=== PATIENT | male | born 1985 | race Caucasian/White ===

== ENCOUNTER 2017-08-25 03:26 | Emergency (ER) | payer MEDICAID, SELFPAY ==
[2017-08-25 03:28] VITALS: BP 144/84; PULSE 106; RESP 16; TEMP 36.9; O2SAT 100; BMI 28.8
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
[2017-08-25] MEDS: Naproxen 500 MG Tablet PO (03:47)
--- NOTE | 2017-08-25 04:44 | ED.DCSUM_ITS ---
- ER Visit Summary Date of Service: 08/25/17 Chief Complaint: Sore throat, fever, chills, dental pain History of Present Illness: The patient is a 32 M who reports sinus pressure with green nasal discharge started yesterday. He complains of cough, body aches , and sore throat. He states he had a fever at home but did not measure it. Is also complaining of right upper dental pain. Physical Examination: Vital signs are unremarkable. His temperature here is 98.4. Patient sitting upright in bed in no acute distress. He is nontoxic appearing. Head neck examination reveals TMs to be clear bilaterally. He has moist mucous membranes. Right maxillary first molar is tender to palpation with mild gum edema. Uvula is midline. There is no posterior pharyngeal fullness. He is tolerating secretions well and has a strong voice. Heart is regular rate and rhythm. Lung sounds are grossly clear. Abdomen is soft nontender. Test Results: Two-view chest x-ray is unremarkable. Influenza and rapid strep are negative. Emergency Department Course and Treatment: Patient was given Naprosyn. On repeat evaluation he appears much more comfortable. He will be treated with a course of Augmentin, to cover dental as well as sinuses. Treatment Plan: [] Disposition: Discharge Impression: 1. Odontalgia 2. Viral syndrome This note was generated with Digi[employer]d dictation software. It may contain incorrect words, spelling, and punctuation that were not noted in review of the chart prior to signing ED Disposition - Plan for ED Patient: Disposition: Home or Assisted Living Chief Complaint: General Illness Instructions: ED Tooth Pain, ED Viral Syndrome Prescriptions: Amox/Clavulanate Tablet [Augmentin Tablet] 875 mg PO Q12H #20 tablet Referrals: Parminder Ramirez MD [STAFF PHYSICIAN] - Additional Instructions: Dental list provided
[2017-08-25] MEDS: Amox/Clavulanate 875 MG Tablet PO (05:13)
[2017-08-25 05:15] VITALS: BP 116/75; PULSE 59; RESP 15; O2SAT 98
== END 2017-08-25 05:15 | disposition home or self-care (01) ==
PROVIDERS: Emergency Provider Emergency Medicine
DX: B34.9 Viral infection, unspecified (principal); K08.89 Other specified disorders of teeth and supporting structures; Z72.0 Tobacco use
CPT/HCPCS: 71046; 87804; 87880; 99283

== ENCOUNTER 2017-12-29 01:59 | Emergency (ER) | payer MEDICAID, SELFPAY ==
[2017-12-29] MEDS: fentaNYL 100 MCG/2 ML Ampul IV ×2 (02:00→02:15)
[2017-12-29] MEDS: 0.9% Normal Saline 1,000 ML 999 ML IV (02:00)
[2017-12-29 02:02] VITALS: BP 137/81; PULSE 115; RESP 26; TEMP 35.3; O2SAT 88; BMI 25.8
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
[2017-12-29 02:12] VITALS: O2SAT 99
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
--- NOTE | 2017-12-29 02:18 | ED.RN ---
NO OLD EKG'S IN MUSE
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
[2017-12-29 02:24] LABS: Absolute Lymphocyte Count 3.06 X10^3/ul (0.83-4.51); Absolute Neutrophil Count 4.7 X10^3/uL (2.0-7.7); Basophil# 0.03 X10^3/uL; Basophil% 0.4 % (0-1); Eosinophil# 0.06 X10^3/uL; Eosinophils% 0.7 % (0-5); Hematocrit 37.6 % (40-54); Hemoglobin 12.6 g/dl (13.0-16.5); Lymphocyte # 3.06 X10^3/ul (4.0); Lymphocyte % 35.8 % (19-41); Mean Corp Hgb Conc 33.5 g/gl (32-36); Mean Corpuscular Hgb 29.7 pg (27.0-32.0); Mean Corpuscular Volume 88.7 fL (80-94); Mean Platelet Vol. 9.4 fl (6.2-12.0); Monocyte# 0.64 X10^3/uL; Monocyte% 7.5 % (0-10); Neutrophil # 4.74 X10^3/uL (2.7-7.7); Neutrophil % 55.4 % (47-70); Platelet Count 228 K/mm3 (150-450); RBC Distribution Width CV 13.4 % (11.6-14.6); RBC Distribution Width SD 43.8 fl (35.1-43.9); Red Blood Count 4.24 M/mm3 (4.6-6.2); White Blood Count 8.6 K/mm3 (4.4-11.0)
[2017-12-29 02:25] VITALS: BP 148/79; PULSE 128; RESP 26; O2SAT 99
[2017-12-29 02:27] LABS: POSITIVE COUNT NO; POSITIVE DIFFERENTIAL NO; POSITIVE MORPHOLOGY NO
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
[2017-12-29 02:28] LABS: International Normalized Ratio 1.1; Partial Thromboplast Time 23.5 Seconds (24.1-36.2); Prothrombin Time (Protime)PT. 13.9 SECONDS (11.7-14.9)
[2017-12-29 02:30] VITALS: BP 126/85; PULSE 132; RESP 26; O2SAT 100
[2017-12-29 02:41] LABS: Anion Gap 9 (5-15); BUN 14 mg/dL (7-18); BUN/Creat Ratio 9.9 RATIO (10-20); Calcium,Total 8.4 mg/dL (8.5-10.1); Chloride 109 mmol/L (98-107); Creatinine, Serum 1.42 mg/dL (0.70-1.30); EST Glomerular Filtration Rate 61 mL/min (>60); Est Glom Filt Rate - Afr Amer 74 mL/min (>60); Estimated Creatinine Clearance 82.73 ml/min; Glucose 138 mg/dL (74-106); Potassium 2.9 mmol/L (3.5-5.1); Sodium Level 143 mmol/L (136-145)
--- NOTE | 2017-12-29 02:41 | ED.RN ---
LAB CALLED WITH CRITICAL LAB RESULTS. TROP 2.150. PATIENT BEING TRANSFERRED TO [facility]. [facility] MADE AWARE OF RESULTS.
[2017-12-29 02:45] VITALS: BP 125/76; PULSE 126; RESP 26; O2SAT 99
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
== END 2017-12-29 02:35 | disposition short-term general hospital (02) ==
PROVIDERS: Emergency Provider Emergency Medicine
DX: S21.132A Puncture wound without foreign body of left front wall of thorax without penetration into thoracic cavity, initial encounter (principal); R94.31 Abnormal electrocardiogram [ECG] [EKG]; Z72.0 Tobacco use; W34.00XA Accidental discharge from unspecified firearms or gun, initial encounter; Y93.9 Activity, unspecified; Y92.9 Unspecified place or not applicable; Y99.9 Unspecified external cause status
CPT/HCPCS: 36415; 51702; 71045; 74018; 80048; 84484; 85025; 85610; 85730; 93005; 96361; 96374; 99285; J7030; A4216

== ENCOUNTER 2018-02-10 11:26 | Inpatient (IN) | payer MEDICAID, SELFPAY ==
[2018-02-10] VITALS (13 sets, daily range): BP systolic 120–136; BP diastolic 69–88; PULSE 82–112; RESP 16–29; TEMP 36.4–37.1; O2SAT 98–100; BMI 23.6; BMI 24.0; BMI 24.1
--- NOTE | 2018-02-10 11:37 | EKG12_ITS ---
Test Reason : CP Blood Pressure : / mmHG Vent. Rate : 108 BPM Atrial Rate : 108 BPM P-R Int : 112 ms QRS Dur : 076 ms QT Int : 320 ms P-R-T Axes : 057 054 -09 degrees QTc Int : 428 ms Sinus tachycardia Nonspecific ST and T wave abnormality Abnormal ECG Confirmed by MILLIE PRIETO, RUBENS ([id number]), supervising editor news reel LUIS ANGEL WASHINGTON ([id number]) on 02/12/2018 12:49:26 PM Referred By: SON Confirmed By:RUBENS PINTO MD
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
[2018-02-10] MEDS: 0.9% Normal Saline 1,000 ML 150 ML IV (11:52)
[2018-02-10] MEDS: Morphine 4 MG/ML Syringe IV ×2 (11:52→15:17)
[2018-02-10 11:54] LABS: Absolute Lymphocyte Count 1.19 X10^3/ul (0.83-4.51); Absolute Neutrophil Count 10.3 X10^3/uL (2.0-7.7); Basophil# 0.03 X10^3/uL; Basophil% 0.2 % (0-1); Eosinophil# 0.01 X10^3/uL; Eosinophils% 0.1 % (0-5); Hematocrit 35.4 % (40-54); Hemoglobin 11.1 g/dl (13.0-16.5); Lymphocyte # 1.19 X10^3/ul (4.0); Lymphocyte % 9.5 % (19-41); Mean Corp Hgb Conc 31.4 g/gl (32-36); Mean Corpuscular Hgb 27.8 pg (27.0-32.0); Mean Corpuscular Volume 88.5 fL (80-94); Mean Platelet Vol. 8.8 fl (6.2-12.0); Monocyte# 0.91 X10^3/uL; Monocyte% 7.3 % (0-10); Neutrophil # 10.33 X10^3/uL (2.7-7.7); Neutrophil % 82.8 % (47-70); Platelet Count 301 K/mm3 (150-450); RBC Distribution Width CV 14.2 % (11.6-14.6); RBC Distribution Width SD 46.2 fl (35.1-43.9); White Blood Count 12.5 K/mm3 (4.4-11.0)
[2018-02-10 11:57] LABS: POSITIVE COUNT NO; POSITIVE DIFFERENTIAL NO; POSITIVE MORPHOLOGY NO
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
[2018-02-10] MEDS: Ondansetron 4 MG/2 ML Vial IV (12:05)
[2018-02-10 12:07] LABS: Anion Gap 11 (5-15); BUN 7 mg/dL (7-18); BUN/Creat Ratio 7.8 RATIO (10-20); Calcium,Total 8.9 mg/dL (8.5-10.1); Chloride 104 mmol/L (98-107); EST Glomerular Filtration Rate 104 mL/min (>60); Est Glom Filt Rate - Afr Amer 126 mL/min (>60); Glucose 106 mg/dL (74-106); Potassium 3.8 mmol/L (3.5-5.1); Sodium Level 140 mmol/L (136-145)
[2018-02-10 12:23] LABS: Lactic Acid 1.2 mmol/L (0.4-2.0)
[2018-02-10] MEDS: levoFLOXacin IV 750 MG/150 ML BAG 100 MG IV (13:57)
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
--- NOTE | 2018-02-10 14:57 | ED.RN ---
pharmacy [facility]
[2018-02-10] MEDS: Vancomycin IV 1,000 MG/200 ML BAG 200 MG IV (15:08)
[2018-02-10] MEDS: 0.9% Normal Saline 1,000 ML 75 ML IV (16:00)
[2018-02-10] MEDS: oxyCODONE 5 MG Tablet PO (17:36)
[2018-02-10] MEDS: Morphine 2 MG/ML Syringe 1 MG IV (20:41)
[2018-02-10] MEDS: Ciprofloxacin 400 MG/200 ML BAG 200 MG IV (20:59)
[2018-02-10] MEDS: guaiFENesin 1,200 MG Tablet 1200 MG PO (20:59)
[2018-02-10] MEDS: Piperacil/Tazobactam 3.375 GM/50 ML ML IV (22:02)
[2018-02-11] VITALS (14 sets, daily range): BP systolic 117–133; BP diastolic 70–79; PULSE 82–115; RESP 16–18; TEMP 36.7–37; O2SAT 97–100
[2018-02-11] MEDS: oxyCODONE 5 MG Tablet PO ×5 (00:06→21:40)
[2018-02-11] MEDS: Morphine 2 MG/ML Syringe 1 MG IV ×2 (03:02→08:25)
[2018-02-11] MEDS: Ciprofloxacin 400 MG/200 ML BAG 200 MG IV (05:00)
[2018-02-11 06:04] LABS: Anion Gap 8 (5-15); BUN 6 mg/dL (7-18); BUN/Creat Ratio 7.6 RATIO (10-20); Calcium,Total 8.5 mg/dL (8.5-10.1); Chloride 103 mmol/L (98-107); Creatinine, Serum 0.79 mg/dL (0.70-1.30); EST Glomerular Filtration Rate 120 mL/min (>60); Est Glom Filt Rate - Afr Amer 145 mL/min (>60); Estimated Creatinine Clearance 129.87 ml/min; Glucose 111 mg/dL (74-106); Potassium 4.1 mmol/L (3.5-5.1); Sodium Level 137 mmol/L (136-145)
[2018-02-11] MEDS: Piperacil/Tazobactam 3.375 GM/50 ML ML IV ×3 (06:05→21:40)
[2018-02-11 06:42] LABS: Absolute Neutrophil Count 7.3 X10^3/uL (2.0-7.7); Basophil# 0.02 X10^3/uL; Basophil% 0.2 % (0-1); Eosinophil# 0.04 X10^3/uL; Eosinophils% 0.4 % (0-5); Hematocrit 31.7 % (40-54); Lymphocyte % 12.9 % (19-41); Mean Corp Hgb Conc 31.5 g/gl (32-36); Mean Corpuscular Hgb 28.3 pg (27.0-32.0); Mean Corpuscular Volume 89.8 fL (80-94); Mean Platelet Vol. 9.3 fl (6.2-12.0); Monocyte# 0.76 X10^3/uL; Monocyte% 8.2 % (0-10); Neutrophil # 7.27 X10^3/uL (2.7-7.7); Neutrophil % 78.3 % (47-70); Platelet Count 292 K/mm3 (150-450); RBC Distribution Width CV 13.9 % (11.6-14.6); RBC Distribution Width SD 44.6 fl (35.1-43.9); Red Blood Count 3.53 M/mm3 (4.6-6.2); White Blood Count 9.3 K/mm3 (4.4-11.0)
[2018-02-11 06:46] LABS: POSITIVE COUNT NO; POSITIVE DIFFERENTIAL NO; POSITIVE MORPHOLOGY NO
[2018-02-11] MEDS: 0.9% NaCl Peripheral Flush Adult/Peds IV ×4 (08:26→21:41)
--- NOTE | 2018-02-11 09:31 | EKG12_ITS ---
Test Reason : CP Blood Pressure : / mmHG Vent. Rate : 094 BPM Atrial Rate : 094 BPM P-R Int : 120 ms QRS Dur : 078 ms QT Int : 366 ms P-R-T Axes : 065 048 -16 degrees QTc Int : 457 ms Normal sinus rhythm T wave abnormality, consider inferior ischemia T wave abnormality, consider anterolateral ischemia Abnormal ECG When compared with ECG of 10-FEB-2018 11:27, MANUAL COMPARISON REQUIRED, DATA IS UNCONFIRMED Confirmed by MILLIE PRIETO, RUBENS ([id number]), news videotape editor LUIS ANGEL WASHINGTON ([id number]) on 02/12/2018 3:03:20 PM Referred By: YASMANI Confirmed By:RUBENS PINTO MD
--- NOTE | 2018-02-11 09:45 | CPS ---
R.T. performing EKG, pt c/o of chest physically hurting as electrodes are placed, pt refused O2 at this time.
--- NOTE | 2018-02-11 09:51 | ECHOD_ITS ---
Reason For Study: CHEST PAIN Procedure This was a 2D Doppler, Color Flow transthoracic echocardiogram. Exam performed portable in patient room. Left Ventricle Normal LV size. The estimated ejection fraction is 45 %. Transmitral diastolic flow velocities suggest mild (stage 1) diastolic dysfunction (reversed pattern). There is mild global hypokinesis of the left ventricle. Right Ventricle Normal RV size. Normal systolic function. Atria Normal left atrium. Normal right atrium. Mitral Valve Normal mitral valve. No mitral valve insufficiency. Tricuspid Valve Normal tricuspid valve. Mild (1+) tricuspid valve insufficiency. Pulmonary artery systolic pressure is 29 mmHg. Aortic Valve Normal aortic valve. Trisinus/trileaflet aortic valve. Pulmonic Valve Normal pulmonic valve. Great Vessels Normal aortic root. The pulmonary artery is normal size. Normal inferior vena cava. Pericardium/Pleural Small pericardial effusion. Small left pleural effusion. MMode/2D Measurements & Calculations LVIDd: 5.0 cm IVSd: 0.94 cm Ao root diam: 2.6 cm LVIDs: 3.9 cm LVPWd: 0.96 cm RVDd: 3.4 cm FS: 21.2 % LAV(MOD-bp): 41.3 ml LA A4 area: 16.9 cm2 RA A4 area: 12.7 cm2 LAV(MOD-bp) Indexed: 22.3 ml/m2 LAV(MOD-sp2): 35.5 ml LAV(MOD-sp4): 42.4 ml Doppler Measurements & Calculations MV E max tru: 46.3 cm/sec Lat Peak E' Tru: 9.5 cm/sec Med Peak E' Tru: 13.4 cm/sec MV A max tru: 62.5 cm/sec E/E' lat: 4.9 E/E' med: 3.5 MV E/A: 0.74 Ao V2 max: 95.0 cm/sec LV V1 max: 88.9 cm/sec TR max tru: 245.7 cm/sec Ao max P.6 mmHg LV V1 max P.2 mmHg TR max P.1 mmHg Interpretation Summary Normal LV size. The estimated ejection fraction is 45 %. Transmitral diastolic flow velocities suggest mild (stage 1) diastolic dysfunction (reversed pattern). Pulmonary artery systolic pressure is 29 mmHg. There is mild global hypokinesis of the left ventricle. Ordering Physician: Octavia Paredes Referring Physician: CHIP DORMAN Performed By: Marli Wall, NEFTALYCS, RVT
[2018-02-11] MEDS: Aspirin 81 MG TAB.CHEW PO (10:39)
[2018-02-11] MEDS: guaiFENesin 1,200 MG Tablet 1200 MG PO ×2 (10:40→21:40)
[2018-02-11 10:45] LABS: Magnesium 1.9 mg/dL (1.6-2.6)
[2018-02-11] MEDS: Morphine 4 MG/ML Syringe IV ×2 (11:40→18:30)
[2018-02-11] MEDS: levoFLOXacin IV 750 MG/150 ML BAG 100 MG IV (12:16)
--- NOTE | 2018-02-11 13:35 | CASEMGMT ---
This RN CM to room to complete CM assessment at this time and pt is sleeping without distress. Pt does not awaken to verbal stimuli or knock on the door. SStaten RN CM
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
--- NOTE | 2018-02-11 14:27 | CASEMGMT ---
Face to Face with patient for initial transition planning/care coordination assessment. RAEANN OHARA introduced self and role at [facility], pt voices understanding and consents to assessment at this time. Pt is lying in bed in no distress at this time. Pt is A/Ox4 at this time and answers all questions appropriately. Care providers, pharmacy, and demographics verified. See attached link. Pt voices no further concerns/needs at this time. Advised pt to ask for CM if any further questions/concerns/needs arise, voices understanding. PLAN: [place] RAEANN OHARA
--- NOTE | 2018-02-11 15:11 | CASEMGMT ---
CM asked SW to see pt for transportation resources. Pt has [employer], so should have access to some transportation for appointments through [employer]. SW was able to print off information from the [employer] website regarding transportation. SW gave this information to pt along w/information for [employer] and [employer], encouraged pt to call if additional resources are needed, to find out if there is any other transportation assistance available in [facility]. Pt states understanding. SW remains available for any additional resources for pt. MAREK Bullock, TARGETING ACQUISITION OFFICER
[2018-02-11] MEDS: Albuterol 2.5 MG/3 ML VIAL.NEB. INHALATION (15:20)
--- NOTE | 2018-02-11 15:23 | NURSING ---
called Dr. Magana [phone] spoke with his nurse.. ok to remove andres that was supposed to be removed 2 weeks ago.
--- NOTE | 2018-02-11 15:32 | CPS ---
pt was unable to expectorate, will not allow DS. Ewelina encouraged Pep therapy & I.S. and let Dr shaw
[2018-02-11] MEDS: Indomethacin 25 MG Capsule 50 MG PO (18:05)
--- NOTE | 2018-02-11 18:54 | NURSING ---
21 andres removed from mid abdominal incision. Patient medicated with morphine prior to staple removal. Patient denies discomfort. Small gauze placed to top of incision site for small amount of serous drainage. Incision intact with no open areas noted.
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
[2018-02-12 03:12] VITALS: PULSE 80
[2018-02-12 03:45] VITALS: BP 123/79; PULSE 89; RESP 16; TEMP 36.9; O2SAT 99
[2018-02-12] MEDS: oxyCODONE 5 MG Tablet PO ×2 (04:15→09:03)
[2018-02-12] MEDS: Piperacil/Tazobactam 3.375 GM/50 ML ML IV (05:36)
[2018-02-12 06:57] VITALS: PULSE 93
[2018-02-12] MEDS: Morphine 4 MG/ML Syringe IV (07:03)
[2018-02-12] MEDS: 0.9% NaCl Peripheral Flush Adult/Peds IV (07:04)
[2018-02-12 07:08] LABS: Absolute Neutrophil Count 7.6 X10^3/uL (2.0-7.7); Basophil# 0.02 X10^3/uL; Basophil% 0.2 % (0-1); Eosinophil# 0.05 X10^3/uL; Eosinophils% 0.5 % (0-5); Hematocrit 33.6 % (40-54); Hemoglobin 10.7 g/dl (13.0-16.5); Lymphocyte % 11.6 % (19-41); Mean Corp Hgb Conc 31.8 g/gl (32-36); Mean Corpuscular Hgb 27.8 pg (27.0-32.0); Mean Corpuscular Volume 87.3 fL (80-94); Mean Platelet Vol. 8.9 fl (6.2-12.0); Monocyte# 0.73 X10^3/uL; Monocyte% 7.7 % (0-10); Neutrophil # 7.58 X10^3/uL (2.7-7.7); Neutrophil % 79.9 % (47-70); POSITIVE COUNT NO; POSITIVE DIFFERENTIAL NO; POSITIVE MORPHOLOGY NO; Platelet Count 330 K/mm3 (150-450); RBC Distribution Width CV 13.7 % (11.6-14.6); RBC Distribution Width SD 43.1 fl (35.1-43.9); Red Blood Count 3.85 M/mm3 (4.6-6.2); White Blood Count 9.5 K/mm3 (4.4-11.0)
[2018-02-12 07:23] LABS: Anion Gap 8 (5-15); BUN 6 mg/dL (7-18); BUN/Creat Ratio 7.8 RATIO (10-20); Calcium,Total 8.6 mg/dL (8.5-10.1); Chloride 103 mmol/L (98-107); Creatinine, Serum 0.77 mg/dL (0.70-1.30); EST Glomerular Filtration Rate 125 mL/min (>60); Est Glom Filt Rate - Afr Amer 151 mL/min (>60); Estimated Creatinine Clearance 133.25 ml/min; Glucose 99 mg/dL (74-106); Potassium 3.7 mmol/L (3.5-5.1); Sodium Level 137 mmol/L (136-145)
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
[2018-02-12] MEDS: guaiFENesin 1,200 MG Tablet 1200 MG PO (09:03)
[2018-02-12] MEDS: Aspirin 81 MG TAB.CHEW PO (09:03)
[2018-02-12] MEDS: levoFLOXacin IV 750 MG/150 ML BAG 100 MG IV (09:03)
[2018-02-12] MEDS: Indomethacin 25 MG Capsule 50 MG PO (09:07)
[2018-02-12 09:10] VITALS: BP 111/78; PULSE 104; RESP 18; TEMP 36.9; O2SAT 98
[2018-02-12 09:15] VITALS: O2SAT 97
--- NOTE | 2018-02-12 10:01 | CPS ---
Patient to do PEP therapy on own
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
--- NOTE | 2018-02-12 10:57 | CASEMGMT ---
Per Dr. Paredes, pt needs to be set up for outpt therapy at [facility]. Order faxed to [facility] at this time and pt given original order to take at discharge. Pt voices no further questions at this time. Charis CARY CM
[2018-02-12 11:01] VITALS: O2SAT 95
[2018-02-12 12:53] LABS: M R Staph aureus DNA By PCR Negative (Negative); Probe Check PASS; Specimen Processing Control PASS
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
== END 2018-02-12 11:13 | disposition home or self-care (01) | DRG 416 ==
LOC: ED 12:16 → PCU 14:53
PROVIDERS: Admitting Provider Internal Medicine; Emergency Provider Emergency Medicine; Family Provider Family Medicine; PCP Family Medicine; Visit Provider Family Medicine
DX: A41.9 Sepsis, unspecified organism (principal); J15.6 Pneumonia due to other Gram-negative bacteria; Y95 Nosocomial condition; D64.9 Anemia, unspecified; Z87.828 Personal history of other (healed) physical injury and trauma; F17.200 Nicotine dependence, unspecified, uncomplicated; R07.9 Chest pain, unspecified; I31.3 Pericardial effusion (noninflammatory)
CPT/HCPCS: 36415; 71045; 71275; 80048; 83605; 83735; 84484; 85025; 87449; 87641; 93005; 93306; 94640; 94667; 94668; 97161; 97165; 99285; 99406; J7030; J7040; J7050; Q9967; A4216; J0744; J2405

== ENCOUNTER 2018-08-20 16:49 | Emergency (ER) | payer MEDICAID, SELFPAY ==
[2018-08-20 16:50] VITALS: BP 141/70; PULSE 60; RESP 16; TEMP 36.4; O2SAT 100; BMI 29.5
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
[2018-08-20 17:15] VITALS: BP 133/86; PULSE 64; RESP 12; O2SAT 99
[2018-08-20] MEDS: Morphine 4 MG/ML Syringe IV ×2 (17:33→20:57)
[2018-08-20] MEDS: Ondansetron 4 MG/2 ML Vial IV ×3 (17:34→20:57)
[2018-08-20] MEDS: 0.9% Normal Saline 1,000 ML 1000 ML IV (17:34)
[2018-08-20 18:01] LABS: Absolute Lymphocyte Count 1.15 X10^3/ul (0.83-4.51); Absolute Neutrophil Count 7.2 X10^3/uL (2.0-7.7); Basophil# 0.01 X10^3/uL; Basophil% 0.1 % (0-1); Eosinophil# 0.04 X10^3/uL; Eosinophils% 0.4 % (0-5); Hematocrit 39.9 % (40-54); Hemoglobin 13.5 g/dl (13.0-16.5); Lymphocyte # 1.15 X10^3/ul (4.0); Lymphocyte % 12.7 % (19-41); Mean Corp Hgb Conc 33.8 g/gl (32-36); Mean Corpuscular Hgb 29.7 pg (27.0-32.0); Mean Corpuscular Volume 87.7 fL (80-94); Mean Platelet Vol. 8.9 fl (6.2-12.0); Monocyte# 0.59 X10^3/uL; Monocyte% 6.5 % (0-10); Neutrophil # 7.24 X10^3/uL (2.7-7.7); Neutrophil % 80.2 % (47-70); Platelet Count 260 K/mm3 (150-450); RBC Distribution Width CV 13.9 % (11.6-14.6); Red Blood Count 4.55 M/mm3 (4.6-6.2)
[2018-08-20 18:04] LABS: POSITIVE COUNT NO; POSITIVE DIFFERENTIAL NO; POSITIVE MORPHOLOGY NO
[2018-08-20 18:19] LABS: AST(SGOT) 15 U/L (15-37); Alanine Aminotransfer ALT/SGPT 23 U/L (16-61); Albumin, Serum 3.3 g/dL (3.2-5.0); Alkaline Phosphatase 94 U/L (45-117); Anion Gap 6 (5-15); BUN 13 mg/dL (7-18); BUN/Creat Ratio 11.6 RATIO (10-20); Bilirubin, Direct 0.06 mg/dL (0.00-0.30); Calcium,Total 8.1 mg/dL (8.5-10.1); Chloride 107 mmol/L (98-107); Creatinine, Serum 1.12 mg/dL (0.70-1.30); EST Glomerular Filtration Rate 81 mL/min (>60); Est Glom Filt Rate - Afr Amer 97 mL/min (>60); Estimated Creatinine Clearance 91.61 ml/min; Globulin 3.1 g/dL (2.2-4.2); Glucose 93 mg/dL (74-106); Lipase 90 U/L (73-393); Protein, Total 6.4 g/dL (6.4-8.2); Sodium Level 140 mmol/L (136-145)
[2018-08-20] MEDS: 0.9% Normal Saline 1,000 ML 150 ML IV (18:28)
--- NOTE | 2018-08-20 18:44 | CT_ITS ---
STUDY: CT ABDOMEN AND PELVIS WITH CONTRAST REASON FOR EXAM: Male, 33 years old. Mid abdominal pain. RADIATION DOSAGE (If Supplied By Facility): CTDIvol = ( 11.9 ) mGy, DLP = ( 723.24 ) mGycm TECHNIQUE: Transaxial images were obtained from the dome of the diaphragm to the symphysis pubis without oral contrast. 100 ml of Isovue 300 contrast was administered. Sagittal and coronal images were reconstructed. Individualized dose optimization techniques were used for this CT. COMPARISON: None. FINDINGS: The visualized lung bases are unremarkable. The visualized portions of the heart are within normal limits. Normal liver. Normal gallbladder and extrahepatic biliary system. Normal spleen. Normal pancreas. Normal bilateral adrenal glands. Normal right kidney. Normal left kidney. Normal visualized stomach. There is a mid abdominal air-fluid levels are present with no evidence of obstruction. Normal colon. The appendix is visualized and appears normal. Normal abdominal aorta. Normal inferior vena cava. Normal retroperitoneum. Normal urinary bladder. Normal visualized prostate gland. Normal abdominal wall. T12 metallic artifact overlies the inferior posterior endplate. CT/Abdomen/Pelvis WITH Contrast IMPRESSION: 1. Mild areas of mid abdominal air-fluid levels within the small bowel consistent with mild component of ileus with no evidence of obstruction. Otherwise no evidence of focal inflammation. Electronically Signed: Fabricio Goins DO at 21:24 EST , Service support ,
[2018-08-20 19:02] VITALS: BP 139/93; PULSE 78; RESP 14; O2SAT 100
[2018-08-20] MEDS: Morphine 2 MG/ML Syringe IV (19:31)
[2018-08-20 21:01] VITALS: BP 134/65; PULSE 61; RESP 17; O2SAT 98
--- NOTE | 2018-08-20 22:03 | ED.DEP ---
ED Disposition - Plan for ED Patient: Disposition: Home or Assisted Living Chief Complaint: Abd Pain Instructions: ED Gastroenteritis Viral Prescriptions: Hydrocodone Bitart/Apap 5-325 [[place] 5MG-325MG] 1 tablet PO Q6H PRN PRN 3 Days #10 tablet PRN Reason: Pain Ondansetron [Zofran Odt] 4 mg PO Q8H PRN PRN #10 tablet PRN Reason: Nausea Famotidine [Pepcid] 20 mg PO BID #28 tablet Metoclopramide [Reglan] 10 mg PO 4X/DAY PRN #20 tablet PRN Reason: Headache Referrals: Jered Moore [COURTESY STAFF PHYSICIAN] - 3-5 Days if not improving
--- NOTE | 2018-08-20 22:06 | DCINST.ED_ITS ---
ED Disposition - Plan for ED Patient: Disposition: Home or Assisted Living Chief Complaint: Abd Pain Instructions: ED Gastroenteritis Viral Prescriptions: Hydrocodone Bitart/Apap 5-325 [[place] 5MG-325MG] 1 tablet PO Q6H PRN PRN 3 Days #10 tablet PRN Reason: Pain Ondansetron [Zofran Odt] 4 mg PO Q8H PRN PRN #10 tablet PRN Reason: Nausea Famotidine [Pepcid] 20 mg PO BID #28 tablet Metoclopramide [Reglan] 10 mg PO 4X/DAY PRN #20 tablet PRN Reason: Headache Referrals: Jered Moore [COURTESY STAFF PHYSICIAN] - 3-5 Days if not improving
[2018-08-20] MEDS: Ondansetron ODT 4 MG Tablet PO (22:24)
[2018-08-20] MEDS: HYDROcodone Bitartrate/Apap 5/325 Tablet PO (22:24)
[2018-08-20 22:28] VITALS: BP 112/79; PULSE 81; RESP 16; O2SAT 100
--- NOTE | 2018-08-20 22:29 | ED.RN ---
THIS NURSE REVIEWED D/C INSTRUCTIONS WITH PT. PT VERBALIZED UNDERSTANDING OF INSTRUCTIONS. IV D/C. IV CATHETER INTACT. PT TOLERATED WELL. PT DENIES FURTHER NEEDS OR QUESTIONS AT THIS TIME. HOME PACKS GIVEN.
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
== END 2018-08-20 22:31 | disposition home or self-care (01) ==
PROVIDERS: Emergency Provider Emergency Medicine
DX: A08.4 Viral intestinal infection, unspecified (principal)
CPT/HCPCS: 74177; 80048; 80076; 83690; 85025; 96361; 96374; 96375; 96376; 99285; J7030; Q9967; A4216; J2405; J3490